=== PATIENT | male | born 1995 | race American Indian/Alaskan Native ===

== ENCOUNTER 2021-03-07 01:21 | Emergency (ER) | payer SELFPAY ==
[2021-03-07 02:09] VITALS: BP 134/82
--- NOTE | 2021-03-07 02:28 | Emergency Department Report ---
Chief Complaint: Urogenital-Male Stated Complaint: UTI TESTING/TREATMENT - HPI History of Present Illness: Patient presents for penile discharge.. Patient denies fevers chills no nausea vomiting patient is tolerating p.o. intake - ROS Review of Systems: All systems are normal except for you there is no open lesions and there is no bleeding no hematuria. Patient states STI. - Exam Vital Signs: Vital Signs 03/07/21 02:08 Temperature 98.8 F Pulse Rate 76 Respiratory 18 Rate Blood Pressure 134/82 [Right] O2 Sat by Pulse 100 Oximetry MSE screening note: Focused history and physical exam performed. Due to findings the following was ordered: Patient presents for significant symptoms of STI, patient has elected to seek treatment health department given symptoms and physical exam this is reasonable patient will be departing the ED to seek treatment at health department ED Disposition for MSE Condition: Stable
== END 2021-03-07 02:51 | disposition home or self-care (01) ==
LOC: ED 01:21
DX: R36.9 Urethral discharge, unspecified (principal); Z53.21 Procedure and treatment not carried out due to patient leaving prior to being seen by health care provider
CPT/HCPCS: 99282

== ENCOUNTER 2021-09-24 23:58 | Emergency (ER) | payer SELFPAY ==
[2021-09-25 01:13] VITALS: BP 130/70
--- NOTE | 2021-09-25 03:48 | Emergency Department Report ---
ED General Adult HPI - General Chief complaint: Headache Stated complaint: HEADACHE Source: patient Mode of arrival: Ambulatory Limitations: No Limitations - History of Present Illness Initial comments: Patient is a 26-year-old -[place] male with no past medical history presents to the ED with complaint of acute onset persistent left maxillary premolar molar toothache that radiates to the left temporal scalp causing significant headache for the last 1 week, worse in the last 2 days. Patient states that he has not been able to sleep because of persistent headache and dental pain. Patient denies fever, chills, nausea, vomiting, change in vision, sore throat, neck pain, cough, traumatic injury, chest pain or shortness of breath. MD Complaint: left mandibular premolar molar toothache; left temporal headache -: Sudden, week(s) (1) Location: head, mouth Radiation: non-radiation Severity scale (0 -10): 8 Quality: aching, sharp Consistency: constant Improves with: none Worsens with: eating Associated Symptoms: denies other symptoms, headaches. denies: confusion, chest pain, cough, diaphoresis, fever/chills, loss of appetite, malaise, nausea/vomiting, rash, seizure, shortness of breath, syncope, weakness Treatments Prior to Arrival: none - Related Data Previous Rx's Medication Instructions Recorded Last Taken Type DOXYCYCLINE Hyclate [Vibramycin 100 mg PO Q12HR #20 capsule 01/21/15 Unknown Rx CAP] Magnesium Citrate [Citrate of 300 ml PO ONCE #1 bottle 11/11/15 Unknown Rx Magnesia] Acetaminophen/Codeine [Tylenol 1 tab PO Q6H PRN #10 tab 09/25/21 Unknown Rx /Codeine # 3 tab] Clindamycin [Clindamycin CAP] 300 mg PO Q8H #30 cap 09/25/21 Unknown Rx Ibuprofen [Motrin] 800 mg PO Q8HR PRN #30 tablet 09/25/21 Unknown Rx Allergies Allergy/AdvReac Type Severity Reaction Status Date / Time shellfish derived Allergy Hives Verified 03/07/21 02:06 ED Review of Systems ROS: Stated complaint: HEADACHE Other details as noted in HPI Constitutional: denies: chills, fever Eyes: denies: eye pain, eye discharge, vision change ENT: dental pain (Swollen, painful left macular edema; premolar and molar toothache). denies: ear pain, throat pain Respiratory: denies: cough, shortness of breath, wheezing Cardiovascular: denies: chest pain, palpitations Endocrine: no symptoms reported Gastrointestinal: denies: abdominal pain, nausea, diarrhea Genitourinary: denies: urgency, dysuria Musculoskeletal: denies: back pain, joint swelling, arthralgia Skin: denies: rash, lesions Neurological: headache. denies: weakness, paresthesias Psychiatric: denies: anxiety, depression Hematological/Lymphatic: denies: easy bleeding, easy bruising ED Past Medical Hx - Social History Smoking Status: Current Every Day Smoker Substance Use Type: None - Medications Home Medications: Home Medications Medication Instructions Recorded Confirmed Last Taken Type DOXYCYCLINE Hyclate [Vibramycin 100 mg PO Q12HR #20 capsule 01/21/15 Unknown Rx CAP] Magnesium Citrate [Citrate of 300 ml PO ONCE #1 bottle 11/11/15 Unknown Rx Magnesia] Acetaminophen/Codeine [Tylenol 1 tab PO Q6H PRN #10 tab 09/25/21 Unknown Rx /Codeine # 3 tab] Clindamycin [Clindamycin CAP] 300 mg PO Q8H #30 cap 09/25/21 Unknown Rx Ibuprofen [Motrin] 800 mg PO Q8HR PRN #30 tablet 09/25/21 Unknown Rx ED Physical Exam - General Limitations: No Limitations General appearance: alert, in no apparent distress - Head Head exam: Present: atraumatic, normocephalic, normal inspection - Eye Eye exam: Present: normal appearance, PERRL, EOMI Pupils: Present: normal accommodation - ENT ENT exam: Present: mucous membranes moist, TM's normal bilaterally, normal exter nal ear exam, other (Swollen, tender left maxillary gingiva; severely tender left maxillary premolar and molar teeth) - Neck Neck exam: Present: normal inspection, full ROM. Absent: tenderness - Respiratory Respiratory exam: Present: normal lung sounds bilaterally. Absent: respiratory distress, wheezes, rales, rhonchi, chest wall tenderness, accessory muscle use, decreased breath sounds - Cardiovascular Cardiovascular Exam: Present: regular rate, normal rhythm, normal heart sounds. Absent: systolic murmur, diastolic murmur, rubs, gallop - GI/Abdominal GI/Abdominal exam: Present: soft, normal bowel sounds. Absent: tenderness, guarding, hyperactive bowel sounds, hypoactive bowel sounds - Extremities Exam Extremities exam: Present: normal inspection, full ROM, normal capillary refill - Back Exam Back exam: Present: normal inspection, full ROM. Absent: tenderness, CVA tenderness (R), CVA tenderness (L), muscle spasm, paraspinal tenderness, vertebral tenderness - Neurological Exam Neurological exam: Present: alert, oriented X3, CN II-XII intact, normal gait, reflexes normal - Psychiatric Psychiatric exam: Present: normal affect, normal mood - Skin Skin exam: Present: warm, dry, intact, normal color. Absent: rash ED Course Vital Signs 09/25/21 01:12 Temperature 98.4 F Pulse Rate 64 Respiratory 18 Rate Blood Pressure 130/70 O2 Sat by Pulse 100 Oximetry ED Medical Decision Making - Medical Decision Making This is a 26-year-old -[place] male with no past medical history presents to the ED with complaint of acute onset persistent left maxillary premolar molar toothache that radiates to the left temporal scalp causing significant headache for the last 1 week, worse in the last 2 days. Patient states that he has not been able to sleep because of persistent headache and dental pain. In the ED, patient is alert and oriented x3 and is not in any distress. Patient is hemodynamically stable. Patient was treated for pain in the ED and discharged home on medications for pain and antibiotics and advised to follow-up with a dentist in 7 to 10 days for reevaluation or return to the ED immediately if symptoms get worse. - Differential Diagnosis Dental abscess; dental caries; gingivitis; tension headache Critical care attestation.: If time is entered above; I have spent that time in minutes in the direct care of this critically ill patient, excluding procedure time. ED Disposition Clinical Impression: Dental abscess, Chronic gingivitis, Tension headache Disposition: HOME / SELF CARE / HOMELESS Is pt being admited?: No Does the pt Need Aspirin: No Condition: Stable Instructions: Tension Headache, Adult, [id number], Dental Abscess, [id number] Additional Instructions: Take medication with food, drink plenty of fluids and follow-up with the dentist in 7 to 10 days for reevaluation. Return to the ED immediately if symptoms get worse Prescriptions: Clindamycin [Clindamycin CAP] 300 mg PO Q8H #30 cap Ibuprofen [Motrin] 800 mg PO Q8HR PRN #30 tablet PRN Reason: Pain , Severe (7-10) Acetaminophen/Codeine [Tylenol /Codeine # 3 tab] 1 tab PO Q6H PRN #10 tab PRN Reason: Pain , Severe (7-10) Referrals: [facility] [Provider Group] - 7-10 days [facility] [Outside] - 7-10 days Time of Disposition: 03:49 Print Language: SAMOAN
[2021-09-25] MEDS: IBUPROFEN 600 MG TAB PO ONE (04:03)
[2021-09-25] MEDS: IBUPROFEN ORAL LIQD 100 MG/5 ML ORAL.LIQD PO ONE (04:03)
[2021-09-25] MEDS: BUTALB/ACETAMINOPHEN/CAFFEINE TAB PO ONE (04:04)
[2021-09-25] MEDS: AMOXICILLIN/K CLAV 875/125MG TAB PO ONE (04:06)
== END 2021-09-25 04:46 | disposition home or self-care (01) ==
LOC: ED 23:58
DX: K04.7 Periapical abscess without sinus (principal); K05.10 Chronic gingivitis, plaque induced; G44.209 Tension-type headache, unspecified, not intractable; F17.200 Nicotine dependence, unspecified, uncomplicated; Z91.013 Allergy to seafood; Z79.899 Other long term (current) drug therapy
CPT/HCPCS: 99282